=== PATIENT | female | born 1975 | race Caucasian/White ===

== ENCOUNTER 2020-09-07 00:16 | Emergency (ER) | payer SELFPAY ==
[~2020-09-07] VITALS: Ht 162.6 cm; Wt 59.0 kg
[2020-09-07 00:51] VITALS: BP 115/69
[2020-09-07] MEDS ORDERED: MORPHINE SULFATE 2 MG/ML VIAL. IM ONE (03:00)
[2020-09-07] MEDS ORDERED: HYDR-3164 PO (03:19)
--- NOTE | 2020-09-07 03:20 | PHYS DOC ---
Past Medical History Past Medical History: Bronchitis Past Surgical History: Hysterectomy, Other Additional Past Surgical Histo: NECK SURGERY 02/2019 Smoking Status: Current Every Day Smoker Alcohol Use: Occasionally General Adult EDM: Chief Complaint: NECK PAIN HPI: HPI: Patient is a 45 year old female who presents with neck pain. 1 year ago patient underwent fusion of C5-C7 vertebrae due to debilitating pain and numbness radiating from her neck down her right arm. Surgery resulted in a resolution of her symptoms until recently. Patient has been experiencing increasing numbness in her right hand for several months. Usually she can shake her hand and the numbness subsides. Two days ago she was shooting her bow and arrow and began feeling severe pain in her neck and right arm. Patient reports a 10/10 pain in her bilateral neck radiating distally along her right and left arms to the elbow. Distal to the elbow she reports numbness in both the right and left hands. She has been in constant burning, stabbing pain in her arms for the past two days with associated spontaneous sharp, shooting pains traveling through her arms occurring sporadically. Patient was evalauted by her PCP this AM--- received a steroid injection and two Gabapentin this afternoon with no change in her pain. Radial pulses were +2/4 in bilateral arms. Muscle weakness was noted in the right arm compared to the left. Flexion of all 5 digits in the right hand, extension and flexion of the wrist, extension and flexion at the elbow, and flexion, extension, and abduction of the shoulder were all +2/5 on muscle strength testing. Bilateral muscle strength testing exhibited +5/5 muscle strength throughout the left upper extremity. Review of Systems: Review of Systems: Constitutional: Denies fever or chills. [] HENT: Denies nasal congestion or sore throat. [] Respiratory: Denies cough or shortness of breath. [] Cardiovascular: Denies chest pain or edema. [] GI: Denies abdominal pain, nausea, vomiting, bloody stools or diarrhea. [] : Denies dysuria. [] Musculoskeletal: Positive for bilateral neck and upper extremity pain and numbness Integument: Denies rash. [] Neurologic: Denies headache, Positive for numbness in neck and numbness and weakness of bilateral neck and upper extremities Endocrine: Denies polyuria or polydipsia. [] Lymphatic: Denies swollen glands. [] Heart Score: Risk Factors: Risk Factors: DM, Current or recent (<one month) smoker, HTN, HLP, family history of CAD, obesity. Risk Scores: Score 0 - 3: 2.5% MACE over next 6 weeks - Discharge Home Score 4 - 6: 20.3% MACE over next 6 weeks - Admit for Clinical Observation Score 7 - 10: 72.7% MACE over next 6 weeks - Early Invasive Strategies Current Medications: Current Medications Medications (Trade) Dose Ordered Sig/Davis Start Time Stop Time Status Last Admin Dose Admin Morphine Sulfate (Morphine Sulfate) 2 mg 1X ONCE 09/07/20 03:00 09/07/20 03:01 DC 09/07/20 03:00 2 MG Allergies: Allergies: Allergies Coded Allergies Type Severity Reaction Last Updated Verified No Known Drug Allergies 09/07/20 No Physical Exam: PE: Constitutional: Well developed, well nourished, no acute distress, non-toxic appearance. [] HENT: Normocephalic, atraumatic, bilateral external ears normal, oropharynx moist, no oral exudates, nose normal. [] Eyes: PERRLA, EOMI, conjunctiva normal, no discharge. [] Neck: Normal range of motion, no tenderness, supple, no stridor. [] Cardiovascular:Heart rate regular rhythm, no murmur [] Lungs & Thorax: Bilateral breath sounds clear to auscultation [] Abdomen: Bowel sounds normal, soft, no tenderness, no masses, no pulsatile masses. [] Skin: Warm, dry, no erythema, no rash. [] Back: No tenderness, no CVA tenderness. [] Extremities: No tenderness, no cyanosis, no clubbing, ROM intact, no edema. [] Neurologic: Alert and oriented X 3, normal motor function, normal sensory function, no focal deficits noted. [weakness in right hand, numbness and tingling bilateral upper extremities.] Psychologic: Affect normal, judgement normal, mood normal. [] Current Patient Data: Labs: Laboratory Tests Test 09/07/20 00:30 POC Urine HCG, Qualitative Hcg negative (Negative) Vital Signs: Vital Signs Date Time Temp Pulse Resp B/P (MAP) Pulse Ox O2 Delivery O2 Flow Rate FiO2 09/07/20 03:00 99 Room Air 09/07/20 00:51 97.9 78 24 115/69 (84) 97.9 EKG: EKG: [] Radiology/Procedures: Radiology/Procedures: [] Course & Med Decision Making: Course & Med Decision Making Pertinent Labs and Imaging studies reviewed. (See chart for details) []Patient was evaluated for chief complaint. Based upon history of present illness and physical exam no emergent lab or imaging ordered. Patient currently being worked up on an outpatient basis. Primary care physician has scheduled an outpatient MRI but patient states she is unable to obtain imaging until her insurance kicks in on October 20. Patient was treated today with gabapentin and steroid shot with minimal improvement. Patient presents today with a chief complaint of pain and requesting pain control. Patient received shot of morphine with improvement of pain. Patient was discharged home with prescription hydrocodone. 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 Richar Disclaimer: Richar Disclaimer: This electronic medical record was generated, in whole or in part, using a voice recognition dictation system. Departure Departure Impression: Primary Impression: Neck pain Additional Impressions: Paresthesia and pain of both upper extremities Chronic pain Disposition: 01 [place] HOME SELF CARE/HOMELESS Condition: STABLE Referrals: UNKNOWN PCP NAME (PCP) Patient Instructions: Paresthesia Scripts Hydrocodone/Apap 5-325 (NORCO 5-325 TABLET) 1 Each Tablet 1-2 TAB PO Q4-6HRS, #20 TAB Prov: CARLYN GILBERT DO 09/07/20 CARLYN GILBERT I DO Sep 07, 2020 03:20
== END 2020-09-07 03:38 | disposition home or self-care (01) ==
LOC: ER 00:16
DX: M54.2 Cervicalgia (principal); G89.29 Other chronic pain; M79.602 Pain in left arm; M79.601 Pain in right arm; R20.2 Paresthesia of skin; F17.200 Nicotine dependence, unspecified, uncomplicated; Z98.1 Arthrodesis status
CPT/HCPCS: 81025; 96372; 99283; J2270